=== PATIENT | female | born 1990 | race Caucasian/White ===

== ENCOUNTER → 2019-11-14 08:06 | Outpatient (REF) | payer OTHER, SELFPAY | LOC: ANHLAB 08:06 | PROVIDERS: PCP Family Medicine Adolescent Medicine; Visit Provider Nurse Practitioner Family | DX: C44.311 Basal cell carcinoma of skin of nose (principal) | CPT/HCPCS: 88305; 88331 ==

== ENCOUNTER 2020-04-15 10:52 | Outpatient (CLI) | payer OTHER, SELFPAY ==
[2020-04-15 11:16] VITALS: BP 143/96; PULSE 97
[2020-04-15 11:25] LABS: Basophils Percent Auto 0.3 % (0.2-1.2); Eosinophils Percent Auto 0.3 % (0-4.4); Hematocrit 34.6 % (37.0-47.0); Hemoglobin 11.5 g/dL (12.0-15.0); Immature Granulocyte Absolute 0.23 K/mm3 (0.00-0.031); Immature Granulocyte Percent A 2.4 % (0-0.5); Lymphocytes Absolute Auto 2.24 K/mm3 (0.9-3.2); Lymphocytes Percent Auto 23.6 % (18.3-44.2); Mean Corpuscular HGB Conc 33.2 g/dl (32-36); Mean Corpuscular Hemoglobin 29.3 pg (26-34); Mean Platelet Volume 10.3 fl (7.4-10.4); Monocytes Absolute Auto 0.6 K/mm3 (0.1-0.6); Monocytes Percent Auto 6.4 % (2.6-8.5); Neutrophils Absolute Auto 6.4 K/mm3 (1.3-6.7); Platelet Count Result 157 k/mm3 (150-375); Red Blood Count 3.93 M/mm3 (4.2-5.4); Red Cell Distribution Width 15.1 % (11.5-14.5); White Blood Count 9.5 K/mm3 (4.5-10.0)
[2020-04-15 11:31] VITALS: BP 160/87; PULSE 89
[2020-04-15 11:39] LABS: Alanine Aminotransferase 13 U/L (4-35); Albumin Level 3.7 g/dL (3.5-5.1); Alkaline Phosphatase 91 U/L (38-126); Anion Gap 6 mmol/L (8-16); Aspartate Amino Transferase 20 U/L (14-36); Bilirubin,Total 0.4 mg/dL (0.2-1.3); Blood Urea Nitrogen 7 mg/dL (7-17); Calcium 8.9 mg/dL (8.4-10.2); Carbon Dioxide 23 mmol/L (22-30); Chloride 105 mmol/L (98-107); Estimated Glomerular Filt Rate > 60; Glucose 99 mg/dL (65-105); Potassium 4.2 mmol/L (3.4-5.0); Sodium 134 mmol/L (137-145); Uric Acid 4.1 mg/dL (2.5-7.5)
[2020-04-15 11:46] VITALS: BP 137/76; PULSE 90
[2020-04-15 12:01] VITALS: BP 140/78; PULSE 98
--- NOTE | 2020-04-15 12:12 | PC.NURSE ---
Called Dr. Sierra with lab results, and BPs. May D/C home and will call pt with plan of care.
== END 2020-04-15 12:15 | disposition home or self-care (01) ==
LOC: ANHOBOP 11:02 → ANHOBPP 04-29 10:39
PROVIDERS: PCP Family Medicine Adolescent Medicine; Visit Provider Obstetrics & Gynecology
DX: O13.9 Gestational [pregnancy-induced] hypertension without significant proteinuria, unspecified trimester (principal); Z3A.00 Weeks of gestation of pregnancy not specified
CPT/HCPCS: 36415; 59025; 80053; 84550; 85025; 99199

== ENCOUNTER 2020-04-16 09:27 | Inpatient (IN) | payer OTHER, SELFPAY ==
--- NOTE | 2020-04-15 23:06 | PM.IMHP ---
H&P: HPI History of Present Illness Date/Time: 04/15/20 23:06 Chief complaint: Pre-admit/Repeat Narrative: 29 y/o at 37 4/7 weeks based on LMP 07/28/19, giving a due date of 05/03/20. She had gestational hypertension in a previous , leading to delivery at 37 weeks. She has anxiety and is taking fluoxetine 40 mg daily. She also took 81 mg aspirin daily from 12 to 34 weeks because of her histroy of gestational HTN. The has been otherwise unremarkable. Ultrasound exam last week gave an EFW of 7#3oz. Her bp in the office was 154/94. She was observed on L&D, where her bp readings were similar. Labs were unremarkable and there is no proteinuria. She has no headaches or visual field change. GBS neg. Review of Systems Review of Systems: All systems reviewed & are unremarkable except as noted in HPI and below PMFSH Past Medical History Medical History (Updated 04/15/20 @ 23:16 by Popeye Sierra MD) Family history of melanoma History of melanoma Surgical History Surgical History History of delivery History of melanoma excision Family History Family History Mother Melanoma Social History Social History Substance use: never Gender identity (if verbalized by the patient): Female Spiritual care concerns: No Comments Past OB History: 1) of a girl weighing 5#11oz at 37 weeks, complicated by gestational HTN. 2) Early SAB, no D&C Meds Home Medications and Allergies Home Medications Medication Instructions Recorded Confirmed Type PNV cmb#95-ferrous fumarate-FA 1 tablet PO DAILY 04/10/20 04/10/20 History [] ferrous sulfate [Iron (ferrous 325 mg PO DAILY 04/10/20 04/10/20 History sulfate)] fluoxetine 40 mg PO DAILY 04/10/20 04/10/20 History Allergies Allergy/AdvReac Type Severity Reaction Status Date / Time No Known Allergies Allergy Unknown Verified 11/21/19 15:09 Exam Const: Orientation/consciousness: patient oriented x3 Other: Well-developed, well-nourished female in no acute distress. Neck: Thyroid: thyroid normal Lymphatic: no lymphadenopathy noted (in neck, axilla or inguinal nodes) Resp: Effort & Inspection: normal respiratory effort Auscultation: clear to auscultation bilaterally Cardio: Rate: regular rate Rhythm: regular rhythm Heart sounds: S1 normal heart sound present and S2 normal heart sound present GI: Other: ABD: Soft, nontender, gravid. FH 38 cm. FHR reactive, TOCO showed no contracitons.. No guarding or rebound tenderness. No hepatosplenomegaly. No RUQ or midepigastric tenderness. : General: Yes no CVA tenderness Other: Cervix closed, thick. Back/Spine/Pelvis: Back: no CVA tenderness Skin: General skin exam: normal color and no rashes or lesions noted Neuro: General: patient oriented x3 Extrem: Other: Extremities: nontender with no edema Psych: Mental Status: mental status grossly normal Affect: normal affect Assessment and Plan Assessment and plan (1) Gestational hypertension: Qualifiers: Trimester: third trimester Qualified Code(s): O13.3 - Gestational [-induced] hypertension without significant proteinuria, third trimester Code(s): O13.9 - Gestational [-induced] hypertension without significant proteinuria, unspecified trimester Status: Acute (2) Elevated blood pressure affecting in third trimester, antepartum: Code(s): O16.3 - Unspecified maternal hypertension, third trimester Status: Acute Assessment and Plan: With an abrupt increase in bp after 37 completed weeks, I have asked that she consider delivery. We reviewed risks, benefits, and she would like to proceed. Moreover, she is interested in a repeat . She understands risks of surgery t
[2020-04-16] VITALS (42 sets, daily range): BP systolic 85–148; BP diastolic 33–100; PULSE 63–134; RESP 16–20; TEMP 36.6–36.8; O2SAT 93–99; BMI 39.0
--- NOTE | 2020-04-16 10:04 | LDADM ---
This patient, Gina Khan, was admitted to Labor/Delivery/Recovery 120 on 04/16/20 at 09:27. Plans for labor, pain management and were discussed with patient. Patient/family oriented to hospital policies and general routines including ID bracelet, bed and alarms, visiting hours, pain management, procedures, bathroom and other care routines, personal items, smoking policy, room service/diet and guest tray routines, infant security routines, and visiting hours. Patient/Family are encouraged to report perceived risks to care and to ask questions if they do not understand what they are told or what they should do. See OBIX for further documentation.
[2020-04-16] MEDS: LACTATED RINGERS 1,000 ML 999 ML IV CONT (10:35)
--- NOTE | 2020-04-16 10:56 | WPDANESEPPF ---
Anes - Initial Pre Proc Eval Procedure: Operation Date: 04/16/20 12:00 Proposed Procedures p Repeat Section - Popeye Sierra MD Date/Time: 04/16/20 10:56 Surgeon: Popeye Sierra MD Pre Op Diagnosis: C/S Patient Data Age: 29 Gender: F Height: 1.8 m Weight: 127 kg Last Vital Signs Pulse 93 04/16/20 10:16 BP 141/81 H 04/16/20 10:16 Allergies Allergy/AdvReac Type Severity Reaction Status Date / Time No Known Allergies Allergy Unknown Verified 11/21/19 15:09 Home Medications Medication Instructions Recorded Confirmed Type PNV cmb#95-ferrous fumarate-FA 1 tablet PO DAILY 04/10/20 04/10/20 History [] ferrous sulfate [Iron (ferrous 325 mg PO DAILY 04/10/20 04/10/20 History sulfate)] fluoxetine 40 mg PO DAILY 04/10/20 04/10/20 History Laboratory Tests 04/16/20 10:34 RPR Pending Patient hx anesthesia problems: none Family hx anesthesia problems: none PMFSH Past Medical History Medical History (Updated 04/16/20 @ 11:04 by Zana Joiner DO) Family history of melanoma Gestational hypertension History of melanoma Surgical History Surgical History History of delivery History of melanoma excision Family History Family History Mother Melanoma Social History Social History Smoking status: Never smoker Substance use: never Gender identity (if verbalized by the patient): Female Spiritual care concerns: No Anes - Eval Final PreProcedure Day of Procedure 04/16/20 10:56 Patient weight: obese Heart: regular rate and rhythm Lungs: clear to auscultation and normal air movement Airway: Mallampati scale class II Neurological: alert and oriented Last oral intake: >/= 8 hours ASA classification: III Emergent: no Anesthetic plan: proceed Anesthesia type and monitoring: regional spinal and standard monitoring Informed Consent: The patient's anesthetic plan and its attendant risks and benefits were discussed with the patient/family/POA. Questions were solicited and answers provided to the satisfaction of the patient/family/POA.
[2020-04-16] MEDS: LACTATED RINGERS 250 ML 999 ML IVPB (11:46)
[2020-04-16] MEDS: ceFAZolin 3 GM/D5W 100 ML 100 ML IVPB (12:09)
--- NOTE | 2020-04-16 12:10 | WPDHPUPDATE1 ---
History and Physical Update Update Date/Time: 04/16/20 12:10 History and Physical has been reviewed, including an updated exam of the patient. There are NO changes in the patient's condition. Risks, benefits, and alternatives have been discussed and questions answered. Patient agrees to proceed with procedure.
--- NOTE | 2020-04-16 14:23 | PM.OBPRVD ---
OB - Delivery Note Procedure Delivery date: 04/16/20 Procedure: Procedures Operation Date: 04/16/20 12:00 Actual Procedures Side Surgeon p Section Popeye Sierra MD Repeat low transverse delivery Delivery monitor: external FHT and external uterine Route of delivery: Estimated blood loss (mL): 660 Anesthesia type: Epidural Disposition: PACU Complications: None Narrative: The patient was taken to the operating room where she was prepared and draped in the usual sterile fashion in dorsal supine position with a leftward tilt. She received cefazolin preoperatively. Spinal anesthesia was found to be adequate. A Pfannenstiel skin incision was made along the previous scar line and was carried through to the underlying layer of the fascia. The fascia was incised in the midline and the incision was extended laterally. The fascia was dissected free of the underlying rectus muscles. The rectus muscles were in the midline. The peritoneum was identified, tented up and entered sharply. The peritoneal incision was extended superiorly and inferiorly with good visualization of the bladder. The bladder blade was placed. The vesicouterine peritoneum was identified, tented up and entered sharply. The incision was extended laterally and the bladder flap was developed. The bladder blade was replaced. The uterus was then incised sharply in a transverse fashion along the lower uterine segment. The incision was extended laterally. The 's head was delivered atraumatically to the sterile field, followed by the body. The nose and mouth were bulb suctioned. After a delay, the cord was clamped and cut. The was handed off the field. Cord blood was collected. The placenta was removed manually and was passed off the field. The uterus was exteriorized and cleared of all clots and debris. The uterine incision was reapproximated using 0 Monocryl in a running, locked fashion. Excellent hemostasis resulted as did excellent reapproximation of the normal anatomy. The uterus was returned the abdomen. The pelvis was irrigated copiously with warmed normal saline. Rigorous hemostasis was assured. The fascial layer was reapproximated using 0 Vicryl in a running fashion. The skin was closed with a running, subcuticular stitch of 4 0 Vicryl. Dermaflex was applied externally. Sponge, lap, needle and instrument counts were correct. The patient was taken to the recovery room in stable condition. The went to the nursery in stable condition. I was present and scrubbed the entire procedure. [place] Baby Date of : 04/16/20 Time of : 13:06 Weeks of gestation at delivery: 37 Infant gender: Female Weight (pounds): 7 Weight (ounces): 3 presentation: vertex Placenta delivery description: Manual Removal and Normal Configuration cord vessel description: 3 Vessels score one minute: 8 score five minutes: 8
--- NOTE | 2020-04-16 14:25 | PM.OBDSVD ---
DS: Admitting Diagnosis Admitting Diagnosis Admitting Diagnosis: IUP at 37 4/7 weeks Gestational hypertension with worsening blood pressure control Prior <Popeye Sierra MD - Last Filed: 04/21/20 12:44> DS: Discharge Diagnosis Discharge Diagnosis (1) Gestational hypertension: Qualifiers: Trimester: third trimester Qualified Code(s): O13.3 - Gestational [-induced] hypertension without significant proteinuria, third trimester <Popeye Sierra MD - Last Filed: 04/21/20 12:44> Code(s): O13.9 - Gestational [-induced] hypertension without significant proteinuria, unspecified trimester <Popeye Sierra MD - Last Filed: 04/21/20 12:44> Status: Acute <Popeye Sierra MD - Last Filed: 04/21/20 12:44> (2) History of delivery: Code(s): Z98.891 - History of uterine scar from previous surgery <Popeye Sierra MD - Last Filed: 04/21/20 12:44> Status: Acute <Popeye Sierra MD - Last Filed: 04/21/20 12:44> (3) Elevated blood pressure affecting in third trimester, antepartum: Code(s): O16.3 - Unspecified maternal hypertension, third trimester <Popeye Sierra MD - Last Filed: 04/21/20 12:44> Status: Acute <Popeye Sierra MD - Last Filed: 04/21/20 12:44> OB - DS: Summary OB Procedures : None <Tre Mhoan MD - Last Filed: 04/18/20 07:21> OB Procedures Intrapartum: <Tre Mohan MD - Last Filed: 04/18/20 07:21> OB Procedures: : None <Tre Mohan MD - Last Filed: 04/18/20 07:21> Peripartum Data Procedures: Procedures Operation Date: 04/16/20 12:00 Actual Procedures Side Surgeon p Section Popeye Sierra MD Repeat low transverse delivery <Popeye Sierra MD - Last Filed: 04/21/20 12:44> DS: Data Data Completed and Pending Pending studies at discharge: Pending at discharge 04/16/20 13:08 Surgical [PTH] Routine <Popeye Sierra MD - Last Filed: 04/21/20 12:44> Labs on day of discharge: Labs from last 24 hours 04/16/20 04/16/20 10:34 10:34 RPR Pending Blood Type O Positive Antibody Screen Negative <Popeye Sierra MD - Last Filed: 04/21/20 12:44> Discharge Plan Discharge Attending physician on discharge: Popeye Sierra <Popeye Sierra MD - Last Filed: 04/21/20 12:44> Popeye Sierra <Tre Mohan MD - Last Filed: 04/18/20 07:21> Consulting providers: Zana Joiner <Popeye Sierra MD - Last Filed: 04/21/20 12:44> Discharging Clinician: Popeye Sierra <Popeye Sierra MD - Last Filed: 04/21/20 12:44> Popeye Sierra <Tre Mohan MD - Last Filed: 04/18/20 07:21> Patient Disposition: Home, Self-Care <Popeye Sierra MD - Last Filed: 04/21/20 12:44> Activity: may shower, may drive after 2 weeks and pelvic rest <Popeye Sierra MD - Last Filed: 04/21/20 12:44> may shower, may drive after 2 weeks and pelvic rest <Tre Mohan MD - Last Filed: 04/18/20 07:21> Diet: regular <Popeye Sierra MD - Last Filed: 04/21/20 12:44> regular <Tre Mohan MD - Last Filed: 04/18/20 07:21> Wound Care Instructions: incision open to air <Popeye Sierra MD - Last Filed: 04/21/20 12:44> incision open to air <Tre Mohan MD - Last Filed: 04/18/20 07:21> Discharge Instructions: Call or return if temperature above 100.4? F, increased abdominal pain, increased vaginal bleeding or any new problems. Education: Mom and Baby Guide Given to: Mother Follow-Up: Call your delivering provider's office for an appointment to be seen in: 4 Weeks Mom and baby should come to the [facility] for the follow-up appointment. Appointment Date/Time: April 19, 2020 at 9:00 am What to
[2020-04-16 15:04] LABS: Amphetamine Screen Urine Negative (Negative); Barbiturate Screen Urine Negative (Negative); Benzodiazepines Screen Urine Negative (Negative); Cannabinoid Screen Urine Positive (Negative); Cocaine Screen Urine Negative (Negative); Methadone Screen Urine Negative (Negative); Opiate Screen Urine Negative (Negative); Phencyclidine Screen Urine Negative (Negative)
[2020-04-16] MEDS: OXYTOCIN 30 UNITS/NS 500 ML 30 UNITS/500 ML BAG 125 UNITS IV CONT (16:06)
--- NOTE | 2020-04-16 16:18 | OBPPTRN ---
Patient transferred to post room # 284 via stretcher. Support person present. Oriented to unit, room, information board, rooming in, admission packet and security measures. Patient verbalizes understanding.
[2020-04-16] MEDS: KETOROLAC 30 MG/ML VIAL (*BKC) IV PUSH (17:00)
[2020-04-16] MEDS: DEXTROSE 5%/0.45% SOD CHL 1,000 ML 125 ML IV CONT (20:00)
[2020-04-16] MEDS: HYDROcodone/acetaminophen (*CRX) 10-325 MG TABLET 1 TAB PO (20:56)
[2020-04-17] MEDS: HYDROcodone/acetaminophen (*CRX) 10-325 MG TABLET 1 TAB PO ×6 (05:09→23:23)
[2020-04-17] MEDS: IBUPROFEN 600 MG TABLET PO ×3 (05:09→19:46)
[2020-04-17] MEDS: SIMETHICONE 80 MG TAB.CHEW PO ×2 (05:09→10:01)
[2020-04-17 05:45] LABS: Basophils Percent Auto 0.2 % (0.2-1.2); Eosinophils Percent Auto 0.2 % (0-4.4); Hematocrit 28.7 % (37.0-47.0); Hemoglobin 9.5 g/dL (12.0-15.0); Immature Granulocyte Absolute 0.08 K/mm3 (0.00-0.031); Immature Granulocyte Percent A 0.7 % (0-0.5); Lymphocytes Absolute Auto 1.32 K/mm3 (0.9-3.2); Lymphocytes Percent Auto 11.7 % (18.3-44.2); Mean Corpuscular HGB Conc 33.1 g/dl (32-36); Mean Corpuscular Hemoglobin 28.9 pg (26-34); Mean Corpuscular Volume 87.2 fl (80-100); Mean Platelet Volume 10.8 fl (7.4-10.4); Monocytes Absolute Auto 0.9 K/mm3 (0.1-0.6); Monocytes Percent Auto 8.2 % (2.6-8.5); Neutrophils Absolute Auto 8.9 K/mm3 (1.3-6.7); Platelet Count Result 123 k/mm3 (150-375); Red Blood Count 3.29 M/mm3 (4.2-5.4); Red Cell Distribution Width 15.3 % (11.5-14.5); White Blood Count 11.3 K/mm3 (4.5-10.0)
[2020-04-17 05:55] VITALS: BP 132/82; PULSE 100; RESP 16; TEMP 36.8; O2SAT 97
[2020-04-17 07:50] VITALS: BP 114/75; PULSE 94; RESP 16; TEMP 36.6; O2SAT 96
--- NOTE | 2020-04-17 09:30 | PC.NURSE ---
Consult with pt., mother reports she is attempting to breast using the nipple shield. Mother states she does not like the shield, she used shield with first child then quickly switched to pumping and bottle feeding. Mother feels comfortable with pumping and wishes to switch to pump and bottle at this time. Offered assist with next feeding, mother declines. Reveiwed instructions breast pump care and usage, pumping schedule, nipple care, and collection and storage of breast milk. Encouraged [id number], breast massage and manual expression to stimulate supply. Assessed patient for correct flange size, placement and draw. Patient verbalizes and demonstrates understanding of instructions.
[2020-04-17] MEDS: DOCUSATE SODIUM 100 MG CAPSULE PO ×2 (10:01→16:44)
[2020-04-17] MEDS: FLUoxetine HCL 20 MG CAPSULE 40 MG PO (10:01)
[2020-04-17] MEDS: MULTIVIT/MIN/PREN/FOL AC/IRON TABLET 1 TAB PO (10:03)
--- NOTE | 2020-04-17 11:10 | WPDANLDPN2 ---
Anes-Prog Note L&D Date/Time: 04/17/20 11:10 Comfortable throughout: section Neuraxial method: spinal Epidural/Spinal procedure site: clean & non-tender Neuro status: Neuro function grossly intact. Cardiovascular status: normal Respiratory status: normal Airway patency: baseline Mental status: baseline Post-Op hydration status: normal Vital Signs: Last Vital Signs Temp 98 F 04/17/20 07:50 Pulse 94 04/17/20 07:50 Resp 16 04/17/20 07:50 BP 114/75 04/17/20 07:50 Pulse Ox 96 04/17/20 07:50 Pain score (VAS): 06/29 I/O: Intake & Output 04/16/20 04/17/20 04/17/20 23:59 07:59 15:59 Intake Total 1000 Output Total 800 Balance 1000 -800 Post-procedural complaints: none Patient feedback: Patient satisfied with anesthetic care.
--- NOTE | 2020-04-17 11:11 | WPDANLDNPN2 ---
Anes-Prog Note L&D-Neuraxial Date/Time: 04/17/20 11:11 Neuraxial medications: intrathecal PF morphine Opiod-related complaints: none Patient feedback: Patient satisfied with post-operative pain management.
[2020-04-17 11:16] LABS: Rapid Plasma Reagin Non-Reactive (NonReactive)
[2020-04-17 12:10] VITALS: BP 116/69; PULSE 102; RESP 18; TEMP 36.3; O2SAT 98
--- NOTE | 2020-04-17 13:03 | PM.OBPNVD ---
OB - PN: Subj Subjective Date/time seen: 04/17/20 13:03 Narrative: Pain OK. Tolerating diet. OB - PN: Obj Data Labs CBC & Chem 7: 04/17/20 05:15 Labs: Laboratory Results - last 24 hr 04/16/20 04/16/20 04/17/20 10:34 14:34 05:15 WBC 11.3 H RBC 3.29 L Hgb 9.5 L Hct 28.7 L MCV 87.2 MCH 28.9 MCHC 33.1 RDW 15.3 H Plt Count 123 L MPV 10.8 H Immature Gran % (Auto) 0.7 H Neut % (Auto) 79.0 H Lymph % (Auto) 11.7 L [place] % (Auto) 8.2 Eos % (Auto) 0.2 Baso % (Auto) 0.2 Lymph # (Auto) 1.32 [place] # (Auto) 0.9 H Eos # (Auto) 0.0 Baso # (Auto) 0.0 Abs Immat Gran (auto) 0.08 H Absolute Neuts (auto) 8.9 H Absolute Nucleated RBC 0.0 Nucleated RBC % 0.0 Urine Opiates Screen Negative Urine Methadone Screen Negative Ur Barbiturates Screen Negative Ur Phencyclidine Scrn Negative Ur Amphetamine Screen Negative U Benzodiazepines Scrn Negative Urine Cocaine Screen Negative U Cannabinoids Screen Positive A RPR Non-reactive OB - PN A/P Plan Comments: A: POD#1, doing well. Gestational HTN, bp stable without meds. P: Routine care. Exam Narrative: Exam Narrative: AVSS. BP 114-145/70-85 I/O OK ABD soft, nontender, fundus firm. Incision c/d/i. EXT nontender
[2020-04-17] MEDS: POLYSACCHARIDE IRON COMPLEX 150 MG CAPSULE PO (16:44)
[2020-04-17 19:50] VITALS: BP 135/85; PULSE 80; RESP 15; TEMP 36.8; O2SAT 97
[2020-04-18] MEDS: HYDROcodone/acetaminophen (*CRX) 10-325 MG TABLET 1 TAB PO ×2 (05:41→09:30)
[2020-04-18] MEDS: IBUPROFEN 600 MG TABLET PO (05:42)
[2020-04-18 07:55] VITALS: BP 137/73; PULSE 84; RESP 18; TEMP 36.6; O2SAT 98
[2020-04-18] MEDS: MULTIVIT/MIN/PREN/FOL AC/IRON TABLET 1 TAB PO (09:30)
[2020-04-18] MEDS: DOCUSATE SODIUM 100 MG CAPSULE PO (09:30)
[2020-04-18] MEDS: POLYSACCHARIDE IRON COMPLEX 150 MG CAPSULE PO (09:30)
[2020-04-18] MEDS: FLUoxetine HCL 20 MG CAPSULE 40 MG PO (09:35)
--- NOTE | 2020-04-18 09:45 | PC.NURSE ---
Mother continues to pump without difficulties or discomfort. Mother is currently feeding with formula and will transition as breastmilk is available. Discussed feeding amounts and when to increase. Mother is feeding as required and waking to feed if needed. is currently meeting outcomes for weight, output, jaundice and feeding frequencies. Mother states she feels confident to continue current feeding plan at home. Reviewed transition to breast milk, signs of adequate intake, and engorgement/relief. Instructed to call ICP if intake/output less than required. Reviewed regular medications mother is taking. Information provided per [place]. Reviewed community resources on the [employer] website and in the Mom/Baby guide. Information on outpatient services provided. Mother has no further questions at this time.
[2020-04-19 09:21] VITALS: BP 146/87; PULSE 77; RESP 20; TEMP 36.9; O2SAT 97
== END 2020-04-18 10:34 | disposition home or self-care (01) | DRG 788 ==
LOC: ANHLDR 14:27 → ANHOB2 04-17 13:15 → ANHLDR 04-21 11:16 → ANHOB2 04-21 11:16
PROVIDERS: Admitting Provider Obstetrics & Gynecology; PCP Family Medicine Adolescent Medicine; Visit Provider Student in an Organized Health Care Education/Training Program
PROC: 10D00Z1 Extraction of Products of Conception, Low, Open Approach (ICD-10-PCS; CPT 59514; principal; 2020-04-16 12:00)
DX: O34.211 Maternal care for low transverse scar from previous cesarean delivery (principal); Z37.0 Single live birth; Z3A.37 37 weeks gestation of pregnancy; O13.4 Gestational [pregnancy-induced] hypertension without significant proteinuria, complicating childbirth; O99.214 Obesity complicating childbirth; E66.9 Obesity, unspecified; O99.344 Other mental disorders complicating childbirth; F41.9 Anxiety disorder, unspecified
CPT/HCPCS: 36415; 80307; 85025; 86592; 86850; 86900; 86901; 88307; A9270; J0131; J0690; J1885; J2274; J2370; J2405; J2590; J7120

== ENCOUNTER 2024-11-19 08:45 | Outpatient (CLI) | payer OTHER, SELFPAY ==
--- NOTE | ~2024-11-19 | MMUS_ITS ---
EXAMINATION: MM diagnostic [place] BI w jessie, US breast BI limited HISTORY: Palpable left breast abnormality TECHNIQUE: Additional 3-D tomosynthesis images of the breasts were performed and synthetic 2-D images were generated. CAD analysis was submitted and interpreted. High resolution limited bilateral breast ultrasound was performed. COMPARISON: None BREAST PARENCHYMAL COMPOSITION: Not dense: There are scattered areas of fibroglandular density. FINDINGS: MAMMOGRAPHIC FINDINGS: There are no suspicious masses, calcifications or architectural distortion in either breast to sugges t malignancy. ULTRASOUND: Limited right breast ultrasound: At 1:00, 7 cm from the nipple there is a 3 mm cyst. At 10:00, 6 cm f rom the nipple there is an oval hypoechoic mass with echogenic hilum measuring 6 mm, likely benign in tramammary lymph node. Limited left breast ultrasound: There is a 4 mm cyst of the left breast in the subareolar location. IMPRESSION: 1. Probable benign 6 mm right breast mass at 10:00, 6 cm from the nipple. 2. Recommend 6 month follow-up Limited right breast ultrasound BI-RADS category 3, probably benign findings. Reviewed, dictated and finalized at location A. IMPRESSION: 1. Probable benign 6 mm right breast mass at 10:00, 6 cm from the nipple. 2. Recommend 6 month follow-up Limited right breast ultrasound BI-RADS category 3, probably benign findings.
== END 2024-11-19 08:46 | disposition home or self-care (01) ==
LOC: MICIMG 08:46
PROVIDERS: PCP Obstetrics & Gynecology; Visit Provider Obstetrics & Gynecology
DX: R92.8 Other abnormal and inconclusive findings on diagnostic imaging of breast (principal)
CPT/HCPCS: 76642; 77062; 77066; G0279